=== PATIENT | female | born 1965 | race Caucasian/White ===

== ENCOUNTER → 2023-11-22 16:53 | Outpatient (REF) | payer OTHER, SELFPAY | LOC: WDC 16:53 | PROVIDERS: ATTENDING PHYSICIAN Physician Assistant Medical | DX: Z12.31 Encounter for screening mammogram for malignant neoplasm of breast (principal) | CPT/HCPCS: 77063; 77067 ==

== ENCOUNTER → 2024-04-17 14:54 | Outpatient (REF) | payer OTHER, SELFPAY | LOC: HWRAD 14:54 | PROVIDERS: ATTENDING PHYSICIAN Nurse Practitioner Family | DX: Z87.39 Personal history of other diseases of the musculoskeletal system and connective tissue (principal) | CPT/HCPCS: 77080 ==

== ENCOUNTER 2024-05-19 06:21 | Day surgery (SDC) | payer OTHER, SELFPAY | END 2024-05-19 12:13 | disposition home or self-care (01) | LOC: GI 06:21 | PROVIDERS: ATTENDING PHYSICIAN Internal Medicine Gastroenterology | DX: Z12.11 Encounter for screening for malignant neoplasm of colon (principal); K64.0 First degree hemorrhoids; Z83.719 Family history of colon polyps, unspecified | CPT/HCPCS: G0121 ==

== ENCOUNTER → 2025-01-15 18:36 | Outpatient (REF) | payer OTHER, SELFPAY | LOC: WDC 18:36 | PROVIDERS: ATTENDING PHYSICIAN Nurse Practitioner Family; FAMILY PHYSICIAN Physician Assistant Medical | DX: Z12.31 Encounter for screening mammogram for malignant neoplasm of breast (principal) | CPT/HCPCS: 77063; 77067 ==